=== PATIENT | male | born 1980 | race African-American/Black ===

== ENCOUNTER → 2019-10-25 | Outpatient (CLI) | payer OTHER ==
--- NOTE | 2019-10-26 10:40 | RAD ---
EXAM: 3 Views Left Shoulder DATE: 10/25/2019 12:00 AM INDICATION: COMPARISON: No Prior FINDINGS: There is no evidence for acute fracture or dislocation. AC joint is congruent. Humeral head is not high riding. Os acromiale is noted. IMPRESSION: 1. No acute fracture or dislocation. 2. Os acromiale is noted. Electronically signed by: Kd Zuñiga MD (10/26/2019 10:37 AM) [id number]
--- NOTE | 2019-10-26 10:49 | RAD ---
EXAM: AP and lateral views of the lumbar spine DATE: 10/25/2019 12:00 AM INDICATION: Low back pain COMPARISON: No Prior FINDINGS: 5 nonrib-bearing lumbar-type vertebral bodies. Vertebral body heights are preserved. Mild L1-2 disc height loss. Mild L4-5 facet degenerative change. No spondylolisthesis. Moderate colonic stool content is seen. IMPRESSION: No acute fracture or subluxation. Mild L1-2 disc height loss. Mild L4-5 facet degenerative change. Electronically signed by: Kd Zuñiga MD (10/26/2019 10:46 AM) [id number]
== END ==
LOC: RAD 13:48
PROVIDERS: ATTEND Family Medicine
DX: M47.816 Spondylosis without myelopathy or radiculopathy, lumbar region (principal); M25.512 Pain in left shoulder
CPT/HCPCS: 72100; 73030